=== PATIENT | female | born 1940 | race Caucasian/White ===

== ENCOUNTER → 2017-12-28 | Outpatient (CLI) | payer MEDICARE, OTHER | END | disposition home or self-care (01) | LOC: PCVCCLINIC 16:02 | PROVIDERS: ATTEND Internal Medicine | DX: R07.9 Chest pain, unspecified (principal); R42 Dizziness and giddiness; E78.5 Hyperlipidemia, unspecified; I49.9 Cardiac arrhythmia, unspecified | CPT/HCPCS: 80061; 93005; G0463 ==

== ENCOUNTER → 2018-02-01 | Outpatient (CLI) | payer MEDICARE, OTHER | END | disposition home or self-care (01) | LOC: PCVCCLINIC 14:32 | PROVIDERS: ATTEND Internal Medicine | DX: E78.5 Hyperlipidemia, unspecified (principal); R42 Dizziness and giddiness; R07.9 Chest pain, unspecified | CPT/HCPCS: G0463 ==

== ENCOUNTER → 2018-08-01 | Outpatient (CLI) | payer MEDICARE, OTHER | END | disposition home or self-care (01) | LOC: PCVCCLINIC 13:00 | PROVIDERS: ATTEND Internal Medicine | DX: R07.9 Chest pain, unspecified (principal); E78.5 Hyperlipidemia, unspecified; K21.9 Gastro-esophageal reflux disease without esophagitis; Z87.898 Personal history of other specified conditions; Z79.82 Long term (current) use of aspirin | CPT/HCPCS: 36415; 80061; 93005; G0463 ==

== ENCOUNTER → 2019-01-13 | Outpatient (CLI) | payer MEDICARE, OTHER ==
--- NOTE | 2019-01-13 16:10 | PCVCIMAG ---
EXAM: LEFT LOWER EXTREMITY ARTERIAL DUPLEX INDICATION: Peripheral Arterial Disease. Leg pain. Discoloration left foot. FINDINGS: Left Leg: Satisfactory arterial waveforms throughout the common/profunda/superficial femoral, popliteal, anterior tibial, peroneal, and posterior tibial arteries. No flow limiting stenosis seen. IMPRESSION: No flow limiting stenosis in the left lower extremity. LOC:[place] [id number]
== END | disposition home or self-care (01) ==
LOC: PCVCIMAG 13:05
PROVIDERS: ATTEND Internal Medicine
DX: I73.9 Peripheral vascular disease, unspecified (principal); M79.672 Pain in left foot; R23.9 Unspecified skin changes; Z88.8 Allergy status to other drugs, medicaments and biological substances
CPT/HCPCS: 93926

== ENCOUNTER → 2019-01-31 | Outpatient (CLI) | payer MEDICARE, OTHER | END | disposition home or self-care (01) | LOC: PCVCCLINIC 09:40 | PROVIDERS: ATTEND Internal Medicine | DX: R07.9 Chest pain, unspecified (principal); R42 Dizziness and giddiness; E78.5 Hyperlipidemia, unspecified; I49.9 Cardiac arrhythmia, unspecified; R94.31 Abnormal electrocardiogram [ECG] [EKG]; E78.00 Pure hypercholesterolemia, unspecified; Z88.8 Allergy status to other drugs, medicaments and biological substances; Z79.82 Long term (current) use of aspirin; Z79.899 Other long term (current) drug therapy; Z72.89 Other problems related to lifestyle | CPT/HCPCS: 36415; 80061; 93005; G0463 ==